=== PATIENT | male | born 2000 | race Caucasian/White ===

== ENCOUNTER 2022-09-15 10:48 | Emergency (ER) | payer OTHER, SELFPAY ==
--- NOTE | 2022-09-15 12:34 | PC.NURSE ---
pt here for complaint of fever for 9 days. rooms full and explained to mother awaiting admission and room availability. 1130 noted pt and mother not in waiting room
== END 2022-09-15 13:26 | disposition left against medical advice (07) ==
LOC: CHSED 09-18 13:25
PROVIDERS: Emergency Provider Emergency Medicine; PCP Family Medicine
DX: Z53.21 Procedure and treatment not carried out due to patient leaving prior to being seen by health care provider (principal)
CPT/HCPCS: 99199